=== PATIENT | female | born 1950 | race Caucasian/White ===

== ENCOUNTER → 2024-01-15 10:30 | Outpatient (BNVA) | payer OTHER, SELFPAY | PROVIDERS: PCP Family Medicine; Visit Provider Internal Medicine Rheumatology ==

== ENCOUNTER 2024-01-31 10:27 | Outpatient (AMB) | payer OTHER, SELFPAY ==
--- OUTSIDE RECORDS SUMMARY | 2024-01-31 10:31 | XMS_ITS | Data Portability ---
Author Organization [facility] (O) Address [address] [place] [address] Care Team Providers Care Water Resources Engineer Name Role Phone ANGELES DEVLIN Primary Care Provider KURT GONZALEZ General Surgeon Assessment No assessment recorded. Plan of Treatment Reminders Order Date Submit Date Provider Last Modified By Organization Details Last Modified Time Details Appointments None record ed. Lab None record ed. Referral None record ed. Procedures None record ed. Surgeries None record ed. Imaging None record ed. Medication Orders None record ed. Patient TargetsNo targets recorded. Patient Instructions Encounter Date Encounter Id Patient Instructions Last Modified By Organization Details Last Modified Time 03/27/2023 [id number] learning about acute cholecystitis [email or web address] Not available 03/27/2023 13:38:51 advance care planning: care instructions [email or web address] Not available 03/27/2023 13:38:51 Reason for Referral None Reported. Results Created Date Observation Date Name Description Value Unit Range Abnormal Flag Note LastModifiedBy Organization Detail LastModifiedTime 03/18/19 24 03/20/2023 SURGI ALLAN PATHO LOGY REPOR T surgical pathology report Patie nt Name: MATEO CURTIS JUANA Narayanan [id number] Locat ion: GSM-2 S; 0291; 1 [facility] howell MD Dire tor(s ): [address] [place] [address] Order ing Physi christian: YNES LOPEZ, DEE Will Anato george Patho logy Resul ts Acces michelle: 335- S-24- [id number] Colle cted 15:16 EST date/ time: Respo nsibl e AIXA Howell MD, HOME Mandujano Recei raúl 08:41 EST Patho logis t: A Date/ Time: SURGI ALLAN PATHO LOGY REPOR T - 13:37 EST - Auth (Veri fied) DIAGN OSIS: GALLB LADDE R: ACUTE AND CHRON IC JERMAIN CYSTI TIS WITH JERMAIN LITHI ASIS. HOME Howell (Elec troni c Signa ture) Odalys d On: 03/20 13:37 EST TAB/T AB SPECI MEN SOURC E: GALLB LADDE R CLINI ALLAN INFOR MATIO N: Diagn osis/ Clini allan Infor matio n: JERMAIN LITHI ASIS Post- Op Diagn osis: Proce dure: ROBOT IC JERMAIN CYSTE CTOMY GROSS EXAMI NATIO N: Recei raúl in forma saulo, desig nated as gall bladd er. Dimen sions : 8.3 x 3.4 by 3.0 cm previ ously opene d gallb ladde r Seros a: [place]aks- gillespie, focal ly hemor rhagi c, may h Lymph node: Absen t Cysti c duct: Obstr ucted by multi ple calcu li up to 0.4 cm Mucos a: Gillespie and velve ty, focal ly sara ened Wall thick ness: Up to 0.6 cm Stone s: Multi ple, yello w and granu lar, multi facet ed, up to 1.5 cm Repre senta tive secti ons are submi tted in one casse tte to inclu de cysti c duct brian n. CA/KM All speci mens are gross ed and prepa red at [facility] [address] [place], [place]. All block s, slide s and stain s are proce ssed, prepa red and stain ed at [facility], [address], [place], [place]. When appli cable , cytol ogy cases are pre-s creen ed by [facility] [address], [place], [place]. Routi adolfo, all small biops y speci mens are niecy hernandez at [facility], [address], [place], [place]. Note: This repor t may conta in immun ohist ochtacho istry resul ts obtai russ by the use of reage nts class ified as Jeanne te Speci fic Reage nts (ASRs ). This test was devel oped and its perfo rmanc e wilman cteri stics deter mined by [facility], Patho logy Lab. It has not been clear ed or appro raúl by the U.S. Food and Drug Admin istra tion. The FDA has Patie nt Name: MATEO CURTIS CIA 57 722 Locat ion: GSM-2 S; 0291; 1 [facility] Home s Aixa howell MD Dire tor(s ): [address] [place] [address] [phone] Order ing Physi christian: YNES LOPEZ, DEE Will Anato george Patho logy Resul ts Acces michelle: 335- S-24- [id number] Colle cted 024 15:16 EST date/ time: Respo nsibl beau Howell MD, HOME Mandujano Recei raúl 024 08:41 EST Patho logis t: A Date/ Time: GROSS EXAMI NATIO N: deter mined that such clear ance is not neces honey. All contr ols show appro priat e react ivity . This entir e repor t was dicta boris using voice recog nitio n softw are. This proce ss may intro duce typog raphi allan or gramm atica l error s which could be misse d despi te thoro ug proof readi ng. If an error in this repor t is suspe cted, pleas e notif y Patho logy. CA /CA MICRO SCOPI C EXAMI NATIO N: All slide s are exami russ micro scopi marlon . Not Available [facility] (Lab) [address], [place], [address], 03/20/2023 13:37:27 03/19/19 24 03/19/2023 CBC W/AUT O DIFF WBC 12.40 x10(3 )/mcL 4.50-1 0.50 high Not Available [facility] (Lab) [address], [place], [address], 03/19/2023 06:16:46 03/19/19 24 03/19/2023 CBC W/AUT O DIFF RBC 4.00 x10(6 )/mcL 4.20-5 .50 low Not Available [facility] (Lab) [address], [place], [address], 03/19/2023 06:16:46 03/19/19 24 03/19/2023 CBC W/AUT O DIFF HGB 12.1 g/dL 12.0-1 6.0 Not Available [facility] (Lab) [address], [place], [address], 03/19/2023 06:16:46 03/19/19 24 03/19/2023 CBC W/AUT O DIFF HCT 35.8 % 37.0-4 7.0 low Not Available [facility] (Lab) [address], [place], [address], 03/19/2023 06:16:46 03/19/19 24 03/19/2023 CBC W/AUT O DIFF MCV 89.5 fL 81.0-9 6.0 Not Available [facility] (Lab) [address], [place], [address], 03/19/2023 06:16:46 03/19/19 24 03/19/2023 CBC W/AUT O DIFF MCH 30.3 pg 27.0-3 4.0 Not Available [facility] (Lab) [address], [place], [address], 03/19/2023 06:16:46 03/19/19 24 03/19/2023 CBC W/AUT O DIFF MCHC 33.9 g/dL 32.0-3 6.0 Not Available [facility] (Lab) [address], [place], [address], 03/19/2023 06:16:46 03/19/19 24 03/19/2023 CBC W/AUT O DIFF RDW-SD 42.4 fL 35.1-4 6.3 Not Available [facility] (Lab) [address], [place], [address], 03/19/2023 06:16:46 03/19/19 24 03/19/2023 CBC W/AUT O DIFF RDW-CV 13.5 % 11.5-1 4.5 Not Available [facility] (Lab) [address], [place], [address], 03/19/2023 06:16:46 03/19/19 24 03/19/2023 CBC W/AUT O DIFF platelet count 277 x10(3 )/mcL 150-45 0 Not Available [facility] (Lab) [address], [place], [address], 03/19/2023 06:16:46 03/19/19 24 03/19/2023 CBC W/AUT O DIFF MPV 8.2 fL 9.4-12 .4 low Not Available [facility] (Lab) [address], [place], [address], 03/19/2023 06:16:46 03/19/19 24 03/19/2023 CBC W/AUT O DIFF neutrophil rel 86.3 % 40.0-7 7.0 high Not Available [facility] (Lab) [address], [place], [address], 03/19/2023 06:16:46 03/19/19 24 03/19/2023 CBC W/AUT O DIFF lymphocyte rel 7.8 % 24.0-4 4.0 low Not Available [facility] (Lab) [address], [place], [address], 03/19/2023 06:16:46 03/19/19 24 03/19/2023 CBC W/AUT O DIFF monocyte rel 5.8 % 0.0-15 .0 Not Available [facility] (Lab) [address], [place], [address], 03/19/2023 06:16:46 03/19/19 24 03/19/2023 CBC W/AUT O DIFF eosinophil rel 0.0 % 0.0-10 .0 Not Available [facility] (Lab) [address], [place], [address], 03/19/2023 06:16:46 03/19/19 24 03/19/2023 CBC W/AUT O DIFF basophil rel 0.1 % 0.0-1. 9 Not Available [facility] (Lab) [address], [place], [address], 03/19/2023 06:16:46 03/19/19 24 03/19/2023 CBC W/AUT O DIFF neutrophil abs 10.7 x10(3 )/mcL 1.6-6. 1 high Not Available [facility] (Lab) [address], [place], [address], 03/19/2023 06:16:46 03/19/19 24 03/19/2023 CBC W/AUT O DIFF lymphocyte abs 1.0 x10(3 )/mcL 1.2-3. 7 low Not Available [facility] (Lab) [address], [place], [address], 03/19/2023 06:16:46 03/19/19 24 03/19/2023 CBC W/AUT O DIFF monocyte abs 0.7 x10(3 )/mcL 0.2-0. 8 Not Available [facility] (Lab) [address], [place], [address], 03/19/2023 06:16:46 03/19/19 24 03/19/2023 CBC W/AUT O DIFF eosinophil abs 0.0 x10(3 )/mcL 0.0-0. 5 Not Available [facility] (Lab) [address], [place], [address], 03/19/2023 06:16:46 03/19/19 24 03/19/2023 CBC W/AUT O DIFF basophil abs 0.0 x10(3 )/mcL 0.0-0. 1 Not Available [facility] (Lab) [address], [place], [address], 03/19/2023 06:16:46 03/19/19 24 03/19/2023 CBC W/AUT O DIFF NRBC auto rel 0.1 /100W BC 0.0-0. 2 Not Available [facility] (Lab) [address], [place], [address], 03/19/2023 06:16:46 03/19/19 24 03/19/2023 CMP sodium lvl 136.7 mmol/ L 137.0- 145.0 low Not Available [facility] (Lab) [address], [place], [address], 03/19/2023 06:32:45 03/19/19 24 03/19/2023 CMP potassium lvl 3.9 mmol/ L 3.4-5. 0 Not Available [facility] (Lab) [address], [place], [address], 03/19/2023 06:32:45 03/19/19 24 03/19/2023 CMP chloride lvl 99.2 mmol/ L 98.0-1 07.0 Not Available [facility] (Lab) [address], [place], [address], 03/19/2023 06:32:45 03/19/19 24 03/19/2023 CMP CO2 31 mmol/ L 22-30 high Not Available [facility] (Lab) [address], [place], [address], 03/19/2023 06:32:45 03/19/19 24 03/19/2023 CMP glucose level 132.9 mg/dL 74.0-1 06.0 high Not Available [facility] (Lab) [address], [place], [address], 03/19/2023 06:32:45 03/19/19 24 03/19/2023 CMP BUN 9.7 mg/dL 7.0-17 .0 Not Available [facility] (Lab) [address], [place], [address], 03/19/2023 06:32:45 03/19/19 24 03/19/2023 CMP creatinine lvl 0.75 mg/dL 0.52-1 .04 Not Available [facility] (Lab) [address], [place], [address], 03/19/2023 06:32:45 03/19/19 24 03/19/2023 CMP agap 6.3 mmol/ L 5.0-15 .0 Not Available [facility] (Lab) [address], [place], [address], 03/19/2023 06:32:45 03/19/19 24 03/19/2023 CMP BUN/creat 13 ratio 10-20 Not Availa ble [facility] (Lab) [address], [place], [address], 03/19/2023 06:32:45 03/19/19 24 03/19/2023 CMP total protein 5.89 g/dL 6.30-8 .20 low Not Available [facility] (Lab) [address], [place], [address], 03/19/2023 06:32:45 03/19/19 24 03/19/2023 CMP albumin lvl 3.6 g/dL 3.5-5. 0 Not Available [facility] (Lab) [address], [place], [address], 03/19/2023 06:32:45 03/19/19 24 03/19/2023 CMP calcium lvl 8.6 mg/dL 8.4-10 .2 Not Available [facility] (Lab) [address], [place], [address], 03/19/2023 06:32:45 03/19/19 24 03/19/2023 CMP bili total 0.48 mg/dL 0.00-1 .00 Not Available [facility] (Lab) [address], [place], [address], 03/19/2023 06:32:45 03/19/19 24 03/19/2023 CMP alk phos 91.6 U/L 38.0-1 26.0 Not Available [facility] (Lab) [address], [place], [address], 03/19/2023 06:32:45 03/19/19 24 03/19/2023 CMP AST 46 U/L 14-36 high Not Available [facility] (Lab) [address], [place], [address], 03/19/2023 06:32:45 03/19/19 24 03/19/2023 CMP ALT 40 U/L 9-52 Not Available [facility] (Lab) [address], [place], [address], 03/19/2023 06:32:45 03/19/19 24 03/19/2023 CMP globulin 2.3 Not Availab le [facility] (Lab) [address], [place], [address], 03/19/2023 06:32:45 03/19/19 24 03/19/2023 CMP A/G ratio 2 Not Availa ble [facility] (Lab) [address], [place], [address], 03/19/2023 06:32:45 03/19/19 24 03/19/2023 CMP calcium corrctd 9 mg/dL Not Available [facility] (Lab) [address], [place], [address], 03/19/2023 06:32:45 03/19/19 24 03/19/2023 CMP eGFR CKD-epi 86 mL/mi n/1.7 3m2 >=90 low Not Available [facility] (Lab) [address], [place], [address], 03/19/2023 06:32:45 Result Notes None recorded. Procedures Surgical History Date Name Laterality Status Provider Name and Address Organization Details Recorded Time 024 Cholecystectomy completed Amanda Fraga [facility] 03/26/2023 16:02:23 023 Most Recent Mammogram completed Amanda Fraga [facility] 03/27/2023 13:09:12 Hemorrhoidectomy completed Amanda Fraga [facility] 03/27/2023 13:09:24 Section completed Amanda Fraga [facility] 03/27/2023 13:09:24 Hysterectomy completed Amanda Fraga [facility] 03/27/2023 13:09:24 Gallbladder Surgery completed Miguelito Fraga [facility] 03/27/2023 13:09:24 Other Surgeries completed Amanda Fraga [facility] 03/27/2023 13:09:24 Imaging Results None recorded. Procedure Notes None recorded. Medical Equipment None Reported. Allergies Allergen ID Allergen Name Allergen Category Reaction Reaction Severity Criticality Documentation Date Start Date Code Code System Note Provider Name and Address Organization Details Recorded Time 105974 POLLEN EXTRACTS environme nt,medica tion Not available Not available Not available 03/27/2023 63368 6 RxNorm Amanda Fraga [facility] 4 13:09:08 [id number] cigarette smoke [facility] Not available Not available Not available 03/27/2023 Amanda Fraga [facility] 4 13:09:08 Medications Name Sig Start Date Stop Date Status Note LastModified by Organization Details LastModified Time betamethaso ne valerate 0.1 % topical ointment active Not Available Not Available Not Available liothyronin e 5 mcg tablet TAKE 2 TABLETS BY MOUTH EVERY DAY active Not Available Not Available No t Available levothyroxi ne 75 mcg tablet TAKE 1/2 TABLET BY MOUTH DAILY active Not Available Not Available No t Available oxycodone-a cetaminophe n 5 mg-325 mg tablet TAKE 1 TABLET BY MOUTH 3 TIMES A DAY NEEDED FOR PAIN FOR 3 DAYS active Not Available Not Available No t Available docusate sodium 100 mg capsule TAKE 1 CAPSULE BY MOUTH TWICE A DAY ,X7 DAYS NEEDED FOR CONSTIPAT ION active Not Available Not Available No t Available hydroxyzine HCl 25 mg tablet TAKE 1 TABLET BY MOUTH TWICE DAILY AND 1 AT BEDTIME NEEDED active Not Available Not Available No t Available clobetasol 0.05 % topical ointment active Not Available Not Available Not Available methylpheni date ER 36 mg tablet,exte nded release 24 hr TAKE 2 TABLETS BY MOUTH ONCE DAILY active Not Available Not Available No t Available amoxicillin 875 mg-potassiu m clavulanate 125 mg tablet TAKE 1 TABLET BY MOUTH EVERY 12 HOURS FOR 5 DAYS 03/27 completed Not Available Not Available Not Available bupropion HCl XL 300 mg 24 hr tablet, extended release TAKE 1 TABLET BY MOUTH EVERY DAY ALONG WITH 150MG TABLET active Not Available Not Available No t Available Vitals Date Recorded Body weight Body mass index (BMI) Body height Respiratory rate Oxygen saturation Oxygen saturation in Arterial blood by Pulse oximetry Heart rate Systolic blood pressure Diastolic blood pressure Provider Name and Address Organization Details Last Updated DateTime 4 49400.7 9 g 22.8 kg/m2 162.56 cm 14 /min 98 % 98 % 82 /min 126 mm[Hg] 75 mm[Hg] Amanda Fraga [facility] 13:12:16 Social History Question Answer Notes LastModified by Organizat ion Details LastModified Time Tobacco Smoking Status Former Smoker Amanda Fraga [facility] 03/27/2023 13:09:20 Do You Have An Advance Directive? Yes [email or web address] Information not available 03/27/2023 What Is Your Level Of Alcohol Consumption? Moderate [email or web address] Information not available 03/27/2023 Are You Blind Or Do You Have Difficulty Seeing? No [email or web address] Information not available 03/27/2023 Is Blood Transfusion Acceptable In An Emergency? Yes [email or web address] Information not available 03/27/2023 What Is Your Level Of Caffeine Consumption? Moderate [email or web address] Information not available 03/27/2023 Are You Currently Employed? No [email or web address] Information not available 03/27/2023 Are You Deaf Or Do You Have Serious Difficulty Hearing? No [email or web address] Information not available 03/27/2023 What Type Of Diet Are You Following? REGULAR Information not available 03/27/2023 When Did You Quit Smoking? 16+yearssince lastcigarette [email or web address] Information not available 03/27/2023 Which Of Your Hands Is Dominant? Right [email or web address] Information not available 03/27/2023 If Pulse Oximetry Was Done: Is The Patient's Sp02 Less Than 93% On Room Air? No [email or web address] Information not available 03/27/2023 What Was The Date Of Your Most Recent Tobacco Screening? 03/27/2023 [email or web address] Information not available 03/27/2023 Do You Have Any Pets? No [email or web address] Information not available 03/27/2023 What Is Your Relationship Status? [email or web address] Information not available 03/27/2023 Do You Feel Stressed (tense, Restless, Nervous, Or Anxious, Or Unable To Sleep At Night)? [id number] [email or web address] Information not available 03/27/2023 Do You Use Any Illicit Or Recreational Drugs? No [email or web address] Information not available 03/27/2023 How Many Years Have You Smoked Tobacco? 6 [email or web address] Information not available 03/27/2023 Do You Or Have You Ever Used Any Other Forms Of Tobacco Or Nicotine? No [email or web address] Information not available 03/27/2023 How Many Days In The Past Year Have You Consumed 4 Or More Drinks? 0 [email or web address] Information no t available 03/27/2023 Sex: Unknown Functional Status Question Answer Note LastModified by Organization D etails LastModified Time Are you able to care for yourself? Yes [email or web address] Information not available 03/27/2023 What is your exercise level? Moderate [email or web address] Information not available 03/27/2023 Mental Status None recorded. Family History Nothing Reported. Medical History Condition Response Thyroid Disease/Disorder Y Asthma Y Gynecological History Statement/Question Response N Total # of Pregnancies 3 Y Menorrhagia (heavy periods)? N N Most Recent Mammogram 04/14/2022 Age at Menarche 17 Current Control Method Other N 2 N Total # of Miscarriages 0 N N Abnormal Pap N Total # of Births 3 Abnormal MMG N Obstetrics History GPAL:G 0 P 0 0 0 0 Past Encounters Encounter ID Performer Location Encounter Start Date Encounter Closed Date Diagnosis/Indication Diagnosis SNOMED-CT Code Diagnosis ICD10 Code [id number] Kurt Gonzalez MD [facility] [address] [place] [address] 03/27/2023 12:58:42 03/27/2023 13:35:55 Body mass index 20-24 - normal 468196194 Z68.22 Advance care planning 71 1662177 Z71.89 Acute cholecystitis 6527 5009 K81.0 Health Concerns Section Related Observation LastModified by Organization Detai ls LastModified Time None Recorded Concern Status LastModified by Organization Details LastModified Time None Recorded Advance Directives Directive Y: Payers Encounter Date Sequence Insurance Name Policy Number Policy Clements Covered Member ID Clements Member ID Guarantor Name 03/27/2023 1 [place] (MED[place]ARE[place] Yamilet Shepherd [id number] Yamilet Shepherd 03/27/2023 2 [facility] INDEMNITY PLAN [facility] [id number] Yamilet Triana [id number] Yamilet Shepherd Notes Date Note Type Note Provider Name and Address Organization Details Recorded Time 03/27/2023 text/html Mrs Shepherd is seen in postop today following robotic assisted cholecystectomy for severe cholecystitis Kurt Gonzalez MD [address], [place], [address], [facility] 03/27/2023 13:39:17 OBGyn Episode No OBEpisode recorded.
--- NOTE | 2024-01-31 10:49 | MHC.OFFVIS ---
Vital Signs 01/31/24 10:51 Height 5 ft 4 in Weight 122 lb 9.232 oz BMI 21.0 BP 138/64 Blood Pressure Location Lt brachial Position Sitting Pulse 75 Pulse Source Pulse Oximeter Pulse Oximetry (%) 99 Oxygen Delivery Method Room Air Intake Visit Reasons: Athritis/CM at 1100 arrival 10:30 Intake Note: Patient presents for arthritis today, she has not been seen since before Covid, pain in hip and right leg, and fingers in both of her hands. Allergies z pack Adverse Reaction (Mild, Uncoded 01/31/24 10:54) Difficulty Breathing HPI HPI Athritis/CM at 1100 arrival 10:30: Details: After covid-19 rebound in July she had incerase joint pain all over. The increased pain subsided in the coming months. She continues to have pelvic fatigue with prolonged standing with pain radiating down right leg with her right foot getting numb. She went to chiropractor. She failed Tylenol 500 mg with ibuprofen 400 mg every 4 hours. At this time pelvic and leg pain does not occur every day. She is also experiencing pain in her fingers. Prior to COVID-19, she did not have any pain. She has had chronic deformities in her fingers. Hard to write and open things. Morning stiffness 30-45 minutes. She has been experiencing numbness in her hands. Nocturnal paresthesias are present. She had an abdominal rash in the summer and was concerned for a bug bite. The rash was diffuse on her abdomen and then self resolved. Denies fevers, recent infection, oral ulcers, genital ulcers, pleurisy, dyspnea, urinary symptoms, abdominal pain, Raynaud's phenomenon She had history of cholecystectomy in March. Aunt has lupus. There is family history of arthritis She smoked from the age of [age]. She has a glass of wine daily. She is retired at travels often. [facility] Medical History (Updated 01/31/24 @ 15:28 by Car Wright MD) ADD (attention deficit disorder) Arthritis Rotator cuff injury Surgical History (Updated 01/31/24 @ 11:07 by Kirti Mondragon CMA) Hx of cholecystectomy H/O: hysterectomy Family History (Updated 01/31/24 @ 11:09 by Kirti Mondragon CMA) Father Cancer Mother Emphysema lung Osteoporosis Social History (Updated 01/31/24 @ 11:10 by Kirti Mondragon [facility]) Alcohol intake: current Alcohol intake frequency: 0-2 drinks per day Alcohol type: wine Patient Tobacco Use Status: Former Tobacco user Years Smoked: 5 Review of Systems Const All systems reviewed & are unremarkable except as noted in HPI and below Physical Exam Vital Signs: Last Vital Signs Pulse 75 01/31/24 10:51 BP 138/64 01/31/24 10:51 Pulse Ox 99 01/31/24 10:51 Oxygen Delivery Method Room Air 01/31/24 10:51 BMI result Body Mass Index 21.0 Const Other: General: Comfortable CVS: RRR Respiratory: clear to auscultation bilaterally. Good respiratory effort Skin: No lesions seen MSK: Tender PIP bilateral with synovitis present right 2nd PIP. Tender DIP in hands. Heberden nodes present. 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 Good range of motion of her shoulders. She does not have tenderness of her hips. Good external rotation of her hips. Good knee flexion. No MTP tenderness. Straight leg raising test right side positive. No tenderness of spinous process. Good cervical range of motion and good lumbar flexion. No SI joint tenderness. Positive Phalen's test Right side. Negative Tinel's test. Assessment & Plan Assessment & Plan (1) Osteoarthritis, hand: Comment: Clinical diagnosis. We discussed diagnosis and management. Code(s): M19.049 - Primary osteoarthritis, unspecified hand Category: Medical Qualifiers: Osteoarthritis type: primary Plan: X-rays bilateral hands ordered OT ordered After lab results are back, I will send prescription for NSAID diclofenac 50 mg twice a day Return to clinic in 3 months (2) Carpal tunnel syndrome, bilateral: Comment: Clinical diagnosis. Right worse than left. Code(s): G56.03 - Carpal tunnel syndrome, bilateral upper limbs Category: Medical Plan: Nerve conduction study ordered Bilateral cock-up wrist braces prescribed to wear at night Return to clinic in 3 months (3) Hip pain: Comment: She is experiencing bilateral hip pain with prolonged standing and radicular symptoms involving her right leg. I am concerned that she has spinal nerve impingement. She may have degenerative joint disease contributing to hip pain. We discussed conservative management. She had imaging ordered by PCP at [facility] but I do not have reports of x-rays. Code(s): M25.559 - Pain in unspecified hip Category: Medical Qualifiers: Laterality: bilateral Qualified Code(s): M25.551 - Pain in right hip; M25.552 - Pain in left hip Plan: Requesting x-rays hips, L-spine, SI joint report [facility] PT ordered I plan to start NSAID after lab results are back She seeing spinal specialist for evaluation Return to clinic in 3 months (4) Right leg weakness: Code(s): R29.898 - Other symptoms and signs involving the musculoskeletal system Category: Medical Plan: See above Orders: Orders XR hand LT min 3V Today M19.049 - Primary osteoarthritis, unspecified hand XR hand RT min 3V Today M19.049 - Primary osteoarthritis, unspecified hand Alanine Aminotransferase Today Z79.60 - longterm (current) use of unspecified immunomodulators and immunosuppressants Aspartate Amino Transferase Today Z79.60 - terminal system operator (current) use of unspecified immunomodulators and immunosuppressants C Reactive Protein Today M19.049 - Primary osteoarthritis, unspecified hand OT Evaluation and Treatment Today M19.049 - Primary osteoarthritis, unspecified hand Complete Blood Count Auto Diff Today Z79.60 - longterm (current) use of unspecified immunomodulators and immunosuppressants Creatinine Today Z79.60 - longterm (current) use of unspecified immunomodulators and immunosuppressants Erythrocyte Sedimentation Rate Today M19.049 - Primary osteoarthritis, unspecified hand NE electromyogram (EMG) Today G56.03 - Carpal tunnel syndrome, bilateral upper limbs NE nerve conduction velocity Today G56.03 - Carpal tunnel syndrome, bilateral upper limbs Referrals Physical Medicine and Rehabilitation Referral M25.559 - Pain in unspecified hip, R29.898 - Other symptoms and signs involving the musculoskeletal system Medications: New arm brace (Wrist Brace) As directed. Bilateral cockup wrist brace. Dx: carpal tunnel syndorme 2 ea 0RF Coding Level of Care Code New Pt Level 4 (34765) Diagnoses Osteoarthritis, hand M19.049 Osteoarthritis type: primary Carpal tunnel syndrome, bilateral G56.03 Bilateral hip pain M25.551; M25.552 Laterality: bilateral Right leg weakness R29.898
[2024-01-31 10:51] VITALS: BP 138/64; PULSE 75; O2SAT 99; BMI 21.0
== END 2024-01-31 12:15 | disposition home or self-care (01) ==
LOC: HO.RHES 10:27
PROVIDERS: PCP Family Medicine; Visit Provider Internal Medicine Rheumatology
DX: M19.049 Primary osteoarthritis, unspecified hand (principal); G56.03 Carpal tunnel syndrome, bilateral upper limbs; M25.551 Pain in right hip; M25.552 Pain in left hip; R29.898 Other symptoms and signs involving the musculoskeletal system
CPT/HCPCS: 99204

== ENCOUNTER 2024-01-31 10:27 | Outpatient (REF) | payer OTHER, MEDICARE, SELFPAY ==
--- NOTE | ~2024-01-31 | XR_ITS ---
EXAMINATION: XR HAND 3 OR MORE VIEWS LEFT, XR HAND 3 OR MORE VIEWS RIGHT HISTORY: M19.049 - Primary osteoarthritis, unspecified hand COMPARISON: There are no prior studies available for comparison. FINDINGS: Six views of the bilateral hands are submitted. Osseous mineralization is normal. There is no fracture or dislocation. On the right, there is moderate to severe osteoarthritis of the 1st carpometacarpal joint and moderate osteoarthritis of the DIP joints of the index and middle fingers. On the left, there is severe osteoarthritis of the 1st carpometacarpal joint and moderate osteoarthritis of the DIP joint of the index finger and the PIP joint of the middle finger. The soft tissues are unremarkable. XR/XR hand LT min 3V IMPRESSION: Osteoarthritis of the bilateral hands as described. Electronically signed by: Benja Munguia MD 02/22/2024 07:04 AM NATASHA OLIVIER
--- NOTE | ~2024-01-31 | XR_ITS ---
EXAMINATION: XR HAND 3 OR MORE VIEWS LEFT, XR HAND 3 OR MORE VIEWS RIGHT HISTORY: M19.049 - Primary osteoarthritis, unspecified hand COMPARISON: There are no prior studies available for comparison. FINDINGS: Six views of the bilateral hands are submitted. Osseous mineralization is normal. There is no fracture or dislocation. On the right, there is moderate to severe osteoarthritis of the 1st carpometacarpal joint and moderate osteoarthritis of the DIP joints of the index and middle fingers. On the left, there is severe osteoarthritis of the 1st carpometacarpal joint and moderate osteoarthritis of the DIP joint of the index finger and the PIP joint of the middle finger. The soft tissues are unremarkable. XR/XR hand RT min 3V IMPRESSION: Osteoarthritis of the bilateral hands as described. Electronically signed by: Benja Munguia MD 02/22/2024 07:04 AM NATAS[facility] OLIVIER
[2024-01-31 13:55] LABS: MANUAL DIFF FLAG NO
[2024-01-31 14:05] LABS: Basophils Percent Auto 0.5 % (0-2); Eosinophils Absolute Auto 0.2 X10*3/uL (0.0-0.4); Eosinophils Percent Auto 3.1 % (0-4); Hematocrit 37.8 % (37.0-47.0); Hemoglobin 12.8 g/dl (12.0-16.0); Imm Gran Abs Auto 0.01 X10*3/uL (0.00-0.03); Imm Gran Pct Auto 0.2 % (0.0-0.4); Lymphocytes Absolute Auto 2.1 X10*3/uL (1.2-4.9); Lymphocytes Percent Auto 34.3 % (20-40); Mean Corpuscular HGB Conc 33.9 g/dl (31.0-35.0); Mean Corpuscular Hemoglobin 30.4 pg (27.0-33.0); Mean Corpuscular Volume 89.8 fL (80.0-98.0); Mean Platelet Volume 9.2 fL (9.4-12.3); Monocytes Absolute Auto 0.4 X10*3/uL (0.1-1.2); Monocytes Percent Auto 6.6 % (2-11); Neutrophils Absolute Auto 3.4 x10*3/uL (2.0-8.3); Neutrophils Percent Auto 55.3 % (45-73); Platelet Count 255 X10*3/uL (160-400); Red Blood Count 4.21 X10*6/uL (4.20-5.50); Red Cell Distribution Width 12.4 % (11.0-16.0); White Blood Count 6.1 X10*3/uL (4.8-10.8)
[2024-01-31 14:34] LABS: Alanine Aminotransferase 33 U/L (0-31); Aspartate Amino Transferase 30 U/L (5-31); C Reactive Protein < 0.10 mg/dL (< or = 0.50); Estimated Glomerular Filt Rate 56
[2024-01-31 14:43] LABS: Erythrocyte Sedimentation Rate 4 MM/HR (0-20)
== END 2024-01-31 10:28 | disposition home or self-care (01) ==
LOC: HO.XRAY 10:27
PROVIDERS: PCP Family Medicine; Visit Provider Internal Medicine Rheumatology
DX: M19.041 Primary osteoarthritis, right hand (principal); M19.042 Primary osteoarthritis, left hand; Z79.60 Long term (current) use of unspecified immunomodulators and immunosuppressants
CPT/HCPCS: 36415; 73130; 82565; 84450; 84460; 85025; 85652; 86140

== ENCOUNTER → 2024-01-31 13:56 | Outpatient (BNV) | payer OTHER, MEDICARE, SELFPAY | PROVIDERS: PCP Family Medicine; Visit Provider Radiology Diagnostic Radiology | DX: M19.042 Primary osteoarthritis, left hand (principal); M19.041 Primary osteoarthritis, right hand | CPT/HCPCS: 73130 ==

== ENCOUNTER 2024-02-26 06:16 | Outpatient (REF) | payer OTHER, MEDICARE, SELFPAY ==
--- NOTE | 2024-02-26 05:54 | EMG_ITS ---
Bilateral median and ulnar motor and sensory studies were performed. Bilateral radial sensory and median and lateral antecubital brachial sensory studies were performed, and paraspinal muscles were tested with a needle. IMPRESSION: 1. [id number] bilateral median neuropathy across carpal tunnel. 2. Mild bilateral ulnar neuropathy across cubital tunnel. 3. Underlying mild axonal sensory motor peripheral neuropathy. 4. Bilateral chronic mid cervical radiculopathy. MD SUSHMA Erickson/JABARI / [id number]
== END 2024-02-26 06:17 | disposition home or self-care (01) ==
LOC: HO.NEURO 06:16
PROVIDERS: PCP Family Medicine; Visit Provider Internal Medicine Rheumatology
DX: G56.03 Carpal tunnel syndrome, bilateral upper limbs (principal)
CPT/HCPCS: 95886; 95913

== ENCOUNTER 2024-05-14 13:07 | Outpatient (REF) | payer MEDICARE, OTHER, SELFPAY ==
[2024-05-14 18:32] LABS: Estimated Average Glucose 97 mg/dL; Total Hemoglobin (HGBA1C) 3383.5188 umol/L
[2024-05-14 18:40] LABS: Alanine Aminotransferase 27 U/L (0-31); Albumin Level 4.4 g/dL (3.5-5.0); Alkaline Phosphatase 86 U/L (39-117); Aspartate Amino Transferase 30 U/L (5-31); Bilirubin Direct 0.1 mg/dL (0.0-0.5); Bilirubin Total 0.3 mg/dL (0.0-1.0); Total Protein 7.1 g/dL (6.5-8.0)
[2024-05-14 18:57] LABS: TSH reflex Free T4 1.89 uIU/mL (0.32-4.0)
[2024-05-14 18:59] LABS: Vitamin B12 741 pg/mL (200-900)
== END 2024-05-14 13:08 | disposition home or self-care (01) ==
LOC: HO.HKASLDS 13:07
PROVIDERS: Visit Provider Internal Medicine Rheumatology
DX: G62.9 Polyneuropathy, unspecified (principal); R74.01 Elevation of levels of liver transaminase levels; Z13.1 Encounter for screening for diabetes mellitus
CPT/HCPCS: 36415; 80076; 82607; 83036; 84443; 99212

== ENCOUNTER 2024-05-14 13:07 | Outpatient (AMB) | payer MEDICARE, OTHER, SELFPAY ==
--- NOTE | 2024-05-14 13:12 | A.OFFVIS_ITS ---
Vital Signs 05/14/24 13:14 Height 5 ft 4 in Weight 131 lb 13.383 oz BMI 22.6 BP 170/80 H Blood Pressure Location Lt brachial Position Sitting Pulse 74 Pulse Source Pulse Oximeter Pulse Oximetry (%) 96 Oxygen Delivery Method Room Air Intake Visit Reasons: discuss EMG results Intake Note: Patient presents for arthritis today Allergies z pack Adverse Reaction (Mild, Uncoded 01/31/24 10:54) Difficulty Breathing HPI HPI discuss EMG results: Details: Pain in arms including paresthesia has resolved. She purchased wrist braces but has not had a need to wear them. She saw a neonatal specialist who told her that her pelvis is not aligned and gave her exercises to do, which relieved back pain and neuropathy symptoms. She is experiencing back pain due to a red eye flight overnight. Her PCP retired. She has seen a provider in the PCP's practice. Blood pressure is high. She is asymptomatic. She feels relaxed from her vacation. [facility] Medical History (Updated 05/14/24 @ 22:35 by Car Wright MD) ADD (attention deficit disorder) Arthritis Rotator cuff injury Surgical History (Updated 01/31/24 @ 11:07 by Kirti Mondragon CMA) Hx of cholecystectomy H/O: hysterectomy Family History (Updated 01/31/24 @ 11:09 by Kirti Mondragon CMA) Father Cancer Mother Emphysema lung Osteoporosis Social History (Updated 01/31/24 @ 11:10 by Kirti Mondragon CMA) Alcohol intake: current Alcohol intake frequency: 0-2 drinks per day Alcohol type: wine Patient Tobacco Use Status: Former Tobacco user Years Smoked: 5 Review of Systems Const All systems reviewed & are unremarkable except as noted in HPI and below Physical Exam Vital Signs: Last Vital Signs Pulse 74 05/14/24 13:14 BP 170/80 H 05/14/24 13:14 Pulse Ox 96 05/14/24 13:14 Oxygen Delivery Method Room Air 05/14/24 13:14 BMI result Body Mass Index 22.6 Const Other: General: Comfortable CVS: RRR Respiratory: clear to auscultation bilaterally. Good respiratory effort Skin: No lesions seen MSK: No tender joints. Heberden nodes present. 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 Good range of motion of her shoulders. Results Reviewed Results Reviewed: Ordering Physician: Car Wright MD Date of Service: 02/26/24 Procedure(s): NE nerve conduction velocity Accession Number(s): [id number] cc: Car Wright MD~ Bilateral median and ulnar motor and sensory studies were performed. Bilateral radial sensory and median and lateral antecubital brachial sensory studies were performed, and paraspinal muscles were tested with a needle. IMPRESSION: 1. [id number] bilateral median neuropathy across carpal tunnel. 2. Mild bilateral ulnar neuropathy across cubital tunnel. 3. Underlying mild axonal sensory motor peripheral neuropathy. 4. Bilateral chronic mid cervical radiculopathy. Assessment & Plan Assessment & Plan (1) Carpal tunnel syndrome, bilateral: Comment: Clinical diagnosis last visit 01/31/2024 with symptoms worse in the right hand compared to the left. EMG of upper extremities 02/26/2024 confirmed bilateral carpal tunnel syndrome but patient is asymptomatic at this time. Code(s): G56.03 - Carpal tunnel syndrome, bilateral upper limbs Category: Medical Plan: She has bilateral cock-up wrist braces at home to use if she becomes symptomatic Return to clinic in 1 year or sooner if needed (2) Peripheral neuropathy: Comment: On recent EMG of upper extremities she has mild axonal and motor peripheral neuropathy. Code(s): G62.9 - Polyneuropathy, unspecified Category: Medical Qualifiers: Peripheral neuropathy type: polyneuropathy, unspecified Qualified Code(s): G62.9 - Polyneuropathy, unspecified Plan: Workup ordered with hemoglobin A1c, TSH and vitamin B12 PCP follow-up (3) Hypertension: Comment: Asymptomatic. Code(s): I10 - Essential (primary) hypertension Category: Medical Qualifiers: Hypertension type: primary hypertension Qualified Code(s): I10 - Essent ial (primary) hypertension Plan: I have asked her to monitor her blood pressure. Her neighbor is a nurse who will take her blood pressure. If her blood pressure consistently remains elevated this week, contact PCP for further management. We discussed the risk of stroke with elevated blood pressure. Discontinue diclofenac as NSAIDs can contribute to hypertension (4) Transaminitis: Comment: ALT mildly elevated at 33. AST is normal. Code(s): R74.01 - Elevation of levels of liver transaminase levels Category: Medical Plan: Liver function panel ordered Discontinue diclofenac 50 mg daily (5) Bilateral cervical radiculopathy: Comment: Per EMG report. At this time she is asymptomatic. Code(s): M54.12 - Radiculopathy, cervical region Category: Medical Plan: Monitor clinically Orders: Orders TSH reflex Free T4 Today G62.9 - Polyneuropathy, unspecified Hemoglobin A1c Today G62.9 - Polyneuropathy, unspecified Vitamin B12 Today G62.9 - Polyneuropathy, unspecified Coding Level of Care Code Est Pt Level 4 (39896) Complex EM visit Add On G2211 Diagnoses Carpal tunnel syndrome, bilateral G56.03 Peripheral polyneuropathy G62.9 Peripheral neuropathy type: polyneuropathy, unspecified Primary hypertension I10 Hypertension type: primary hypertension Transaminitis R74.01 Bilateral cervical radiculopathy M54.12
[2024-05-14 13:14] VITALS: BP 170/80; PULSE 74; O2SAT 96; BMI 22.6
--- OUTSIDE RECORDS SUMMARY | 2024-05-14 15:43 | XMS_ITS | Data Portability ---
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 [address] [phone] Order ing Physi christian: YNES LOPEZ, DEE Will Anato george Patho logy Resul ts Acces michelle: 335- S-24- [phone] 9 Colle cted 15:16 EST date/ time: [...] opene d gallb ladde r Seros a: [place]- gillespie, focal ly hemor rhagi c, may [...] are gross ed and prepa red at [facility] [address], [place]. All block s, slide s and stain s are proce ssed, prepa red and stain ed at [facility], [address], [place], [place]. When appli cable , cytol ogy cases are pre-s creen ed by [facility] [address], [place], [place]. Routi adolfo, all small biops y speci mens are niecy hernandez at [facility], [address], [place], [place]. Note: This repor t may conta in immun ohist ochtacho istry resul ts obtai russ by the use of reage nts class ified as Jeanne te Speci fic Reage nts (ASRs ). This test was devel oped and its perfo rmanc e wilman cteri stics deter mined by [facility], Patho logy Lab. It has not been clear ed or appro raúl by the U.S. Food and Drug Admin istra tion. The FDA has Patie nt Name: MATEO CURTIS CIA 57 722 Locat ion: GSM-2 S; 0291; 1 [facility] Aixa howell MD Dire tor(s ): [address] [place] [address] Order ing Physi christian: YNES LOPEZ, DEE Will Anato george Patho logy Resul ts Acces michelle: 335- S-24- [id number] 9 Colle cted 024 15:16 EST date/ [...] russ micro scopi marlon . Not Available [facility] (Lab) [address], [place], [address], 03/20/2023 13:37:27 03/19/19 24 03/19/2023 CBC W/AUT O DIFF WBC 12.40 x10(3 )/mcL 4.50-1 0.50 high Not Available [facility] (Lab) [address], [place], [address], 03/19/2023 06:16:46 03/19/19 24 03/19/2023 CBC W/AUT O DIFF RBC 4.00 x10(6 )/mcL 4.20-5 .50 low Not Available [facility] (Lab) [address], [place], [address], 03/19/2023 06:16:46 03/19/19 24 03/19/2023 CBC W/AUT O DIFF HGB 12.1 g/dL 12.0-1 6.0 Not Available [facility] (Lab) [address], [place], [address], 03/19/2023 06:16:46 03/19/19 24 03/19/2023 CBC W/AUT O DIFF HCT 35.8 % 37.0-4 7.0 low Not Available [facility] (Lab) [address], [place], [address], 03/19/2023 06:16:46 03/19/19 24 03/19/2023 CBC W/AUT O DIFF MCV 89.5 fL 81.0-9 6.0 Not Available [facility] (Lab) [address], [place], [address], 03/19/2023 06:16:46 03/19/19 24 03/19/2023 CBC W/AUT O DIFF MCH 30.3 pg 27.0-3 4.0 Not Available [facility] (Lab) [address], [place], [address], 03/19/2023 06:16:46 03/19/19 24 03/19/2023 CBC W/AUT O DIFF MCHC 33.9 g/dL 32.0-3 6.0 Not Available [facility] (Lab) [address], [place], [address], 03/19/2023 06:16:46 03/19/19 24 03/19/2023 CBC W/AUT O DIFF RDW-SD 42.4 fL 35.1-4 6.3 Not Available [facility] (Lab) [address], [place], [address], 03/19/2023 06:16:46 03/19/19 24 03/19/2023 CBC W/AUT O DIFF RDW-CV 13.5 % 11.5-1 4.5 Not Available [facility] (Lab) [address], [place], [address], 03/19/2023 06:16:46 03/19/19 24 03/19/2023 CBC W/AUT O DIFF platelet count 277 x10(3 )/mcL 150-45 0 Not Available [facility] (Lab) [address], [place], [address], 03/19/2023 06:16:46 03/19/19 24 03/19/2023 CBC W/AUT O DIFF MPV 8.2 fL 9.4-12 .4 low Not Available [facility] (Lab) [address], [place], [address], 03/19/2023 06:16:46 03/19/19 24 03/19/2023 CBC W/AUT O DIFF neutrophil rel 86.3 % 40.0-7 7.0 high Not Available [facility] (Lab) [address], [place], [address], 03/19/2023 06:16:46 03/19/19 24 03/19/2023 CBC W/AUT O DIFF lymphocyte rel 7.8 % 24.0-4 4.0 low Not Available [facility] (Lab) [address], [place], [address], 03/19/2023 06:16:46 03/19/19 24 03/19/2023 CBC W/AUT O DIFF monocyte rel 5.8 % 0.0-15 .0 Not Available [facility] (Lab) [address], [place], [address], 03/19/2023 06:16:46 03/19/19 24 03/19/2023 CBC W/AUT O DIFF eosinophil rel 0.0 % 0.0-10 .0 Not Available [facility] (Lab) [address], [place], [address], 03/19/2023 06:16:46 03/19/19 24 03/19/2023 CBC W/AUT O DIFF basophil rel 0.1 % 0.0-1. 9 Not Available [facility] (Lab) [address], [place], [address], 03/19/2023 06:16:46 03/19/19 24 03/19/2023 CBC W/AUT O DIFF neutrophil abs 10.7 x10(3 )/mcL 1.6-6. 1 high Not Available [facility] (Lab) [address], [place], [address], 03/19/2023 06:16:46 03/19/19 24 03/19/2023 CBC W/AUT O DIFF lymphocyte abs 1.0 x10(3 )/mcL 1.2-3. 7 low Not Available [facility] (Lab) [address], [place], [address], 03/19/2023 06:16:46 03/19/19 24 03/19/2023 CBC W/AUT O DIFF monocyte abs 0.7 x10(3 )/mcL 0.2-0. 8 Not Available [facility] (Lab) [address], [place], [address], 03/19/2023 06:16:46 03/19/19 24 03/19/2023 CBC W/AUT O DIFF eosinophil abs 0.0 x10(3 )/mcL 0.0-0. 5 Not Available [facility] (Lab) [address], [place], [address], 03/19/2023 06:16:46 03/19/19 24 03/19/2023 CBC W/AUT O DIFF basophil abs 0.0 x10(3 )/mcL 0.0-0. 1 Not Available [facility] (Lab) [address], [place], [address], 03/19/2023 06:16:46 03/19/19 24 03/19/2023 CBC W/AUT O DIFF NRBC auto rel 0.1 /100W BC 0.0-0. 2 Not Available [facility] (Lab) [address], [place], [address], 03/19/2023 06:16:46 03/19/19 24 03/19/2023 CMP sodium lvl 136.7 mmol/ L 137.0- 145.0 low Not Available [facility] (Lab) [address], [place], [address], 03/19/2023 06:32:45 03/19/19 24 03/19/2023 CMP potassium lvl 3.9 mmol/ L 3.4-5. 0 Not Available [facility] (Lab) [address], [place], [address], 03/19/2023 06:32:45 03/19/19 24 03/19/2023 CMP chloride lvl 99.2 mmol/ L 98.0-1 07.0 Not Available [facility] (Lab) [address], [place], [address], 03/19/2023 06:32:45 03/19/19 24 03/19/2023 CMP CO2 31 mmol/ L 22-30 high Not Available [facility] (Lab) [address], [place], [address], 03/19/2023 06:32:45 03/19/19 24 03/19/2023 CMP glucose level 132.9 mg/dL 74.0-1 06.0 high Not Available [facility] (Lab) [address], [place], [address], 03/19/2023 06:32:45 03/19/19 24 03/19/2023 CMP BUN 9.7 mg/dL 7.0-17 .0 Not Available [facility] (Lab) [address], [place], [address], 03/19/2023 06:32:45 03/19/19 24 03/19/2023 CMP creatinine lvl 0.75 mg/dL 0.52-1 .04 Not Available [facility] (Lab) [address], [place], [address], 03/19/2023 06:32:45 03/19/19 24 03/19/2023 CMP agap 6.3 mmol/ L 5.0-15 .0 Not Available [facility] (Lab) [address], [place], [address], 03/19/2023 06:32:45 03/19/19 24 03/19/2023 CMP BUN/creat 13 ratio 10-20 Not Availa ble [facility] (Lab) [address], [place], [address], 03/19/2023 06:32:45 03/19/19 24 03/19/2023 CMP total protein 5.89 g/dL 6.30-8 .20 low Not Available [facility] (Lab) [address], [place], [address], 03/19/2023 06:32:45 03/19/19 24 03/19/2023 CMP albumin lvl 3.6 g/dL 3.5-5. 0 Not Available [facility] (Lab) [address], [place], [address], 03/19/2023 06:32:45 03/19/19 24 03/19/2023 CMP calcium lvl 8.6 mg/dL 8.4-10 .2 Not Available [facility] (Lab) [address], [place], [address], 03/19/2023 06:32:45 03/19/19 24 03/19/2023 CMP bili total 0.48 mg/dL 0.00-1 .00 Not Available [facility] (Lab) [address], [place], [address], 03/19/2023 06:32:45 03/19/19 24 03/19/2023 CMP alk phos 91.6 U/L 38.0-1 26.0 Not Available [facility] (Lab) [address], [place], [address], 03/19/2023 06:32:45 03/19/19 24 03/19/2023 CMP AST 46 U/L 14-36 high Not Available [facility] (Lab) [address], [place], [address], 03/19/2023 06:32:45 03/19/19 24 03/19/2023 CMP ALT 40 U/L 9-52 Not Available [facility] (Lab) [address], [place], [address], 03/19/2023 06:32:45 03/19/19 24 03/19/2023 CMP globulin 2.3 Not Availab le [facility] (Lab) [address], [place], [address], 03/19/2023 06:32:45 03/19/19 24 03/19/2023 CMP A/G ratio 2 Not Availa ble [facility] (Lab) [address], [place], [address], 03/19/2023 06:32:45 03/19/19 24 03/19/2023 CMP calcium corrctd 9 mg/dL Not Available [facility] (Lab) [address], [place], [address], 03/19/2023 06:32:45 03/19/19 24 03/19/2023 CMP eGFR CKD-epi 86 mL/mi n/1.7 3m2 >=90 low Not Available [facility] (Lab) [address], [place], [address], 03/19/2023 06:32:45 Result Notes None recorded. Procedures Surgical History Date Name Laterality Status Provider Name and Address Organization Details Recorded Time 024 Cholecystectomy completed Amanda Fraga [facility] 03/26/2023 16:02:23 023 Most Recent Mammogram completed Amanda Fraga [facility] 03/27/2023 13:09:12 Hemorrhoidectomy completed Amanda Fraga [facility] 03/27/2023 13:09:24 Section completed Amanda Fraga [facility] 03/27/2023 13:09:24 Hysterectomy completed Amanda Fraga [facility] 03/27/2023 13:09:24 Gallbladder Surgery completed Miguelito Fraga [facility] 03/27/2023 13:09:24 Other Surgeries completed Amanda Fraga [facility] 03/27/2023 13:09:24 Imaging Results None recorded. Procedure Notes None recorded. Medical Equipment None Reported. Allergies Allergen ID Allergen Name Allergen Category Reaction Reaction Severity Criticality Documentation Date Start Date Code Code System Note Provider Name and Address Organization Details Recorded Time 021205 PO[employer] environme nt,medica tion Not available Not available Not available 03/27/2023 93868 6 RxNorm Amanda Fraga [facility] 4 13:09:08 [id number] cigarette smoke [facility] Not available Not available Not available 03/27/2023 22480 UNK Amanda Fraga [facility] 4 13:09:08 Medications Name Sig Start Date [...] Address Organization Details Last Updated DateTime 4 50141.7 9 g 22.8 kg/m2 162.56 cm 14 /min 98 % 98 % 82 /min 126 mm[Hg] 75 mm[Hg] Amanda Fraga [facility] 13:12:16 Social History Question Answer Notes LastModified by Organizat ion Details LastModified Time Tobacco Smoking Status Former Smoker Amanda Fraga [facility] 03/27/2023 13:09:20 Do You Have An Advance Directive? Yes [email or web address] Information not available 03/27/2023 What Is Your Level Of Alcohol Consumption? Moderate [email or web address] Information not available 03/27/2023 Are You Blind Or Do You Have Difficulty Seeing? No [email or web address] Information not available 03/27/2023 Is Blood Transfusion Acceptable In An Emergency? Yes [email or web address] Information not available 03/27/2023 What Is Your Level Of Caffeine Consumption? Moderate [email or web address] Information not available 03/27/2023 Are You Currently Employed? No [email or web address] Information not available 03/27/2023 Are You Deaf Or Do You Have Serious Difficulty Hearing? No [email or web address] Information not available 03/27/2023 What Type Of Diet Are You Following? REGULAR [email or web address] Information not available 03/27/2023 When Did You Quit Smoking? 16+yearssince lastcigarette [email or web address] Information not available 03/27/2023 Which Of Your Hands Is Dominant? Right [email or web address] Information not available 03/27/2023 If Pulse Oximetry Was Done: Is The Patient's Sp02 Less Than 93% On Room Air? No [email or web address] Information not available 03/27/2023 What Was The Date Of Your Most Recent Tobacco Screening? 03/27/2023 [email or web address] Information not available 03/27/2023 Do You Have Any Pets? No [email or web address] Information not available 03/27/2023 What Is Your Relationship Status? [email or web address] Information not available 03/27/2023 Do You Feel Stressed (tense, Restless, Nervous, Or Anxious, Or Unable To Sleep At Night)? [id number] Information not available 03/27/2023 Do You Use Any Illicit Or Recreational Drugs? No [email or web address] Information not available 03/27/2023 How Many Years Have You Smoked Tobacco? 6 Information not available 03/27/2023 Do You Or Have You Ever Used Any Other Forms Of Tobacco Or Nicotine? No [email or web address] Information not available 03/27/2023 How Many Days In The Past Year Have You Consumed 4 Or More Drinks? 0 [email or web address] Information no t available 03/27/2023 Sex: Unknown Functional Status Question Answer Note LastModified by Organization D etails LastModified Time Are you able to care for yourself? Yes [email or web address] Information not available 03/27/2023 What is your exercise level? Moderate [email or web address] Information not available 03/27/2023 Mental Status None [...] Diagnosis/Indication Diagnosis SNOMED-CT Code Diagnosis ICD10 Code Diagnosis Note [id number] Kurt Gonzalez MD [facility] [address] [place] [address] 03/27/2023 12:58:42 03/27/2023 13:35:55 Body mass index 20-24 - normal [id number] Z68.22 Advance care planning 71 [id number] Z71.89 Acute cholecystitis 6527 5009 K81.0 Ms. Triana is doing very well in postop today. She does have some lower abdominal pain which may be secondary to lysis of adhesions from extensive pelvic surgery we had to perform. She states her right upper quadrant pain is improved. She is tolerating diet. Initially she had constipati on but that is improved. I will see her back in 2 weeks before she goes back to [facility] to ensure everything is going well Health Concerns Section Related Observation LastModified by Organization Detai ls LastModified Time None Recorded Concern Status LastModified by Organization Details LastModified Time None Recorded Advance Directives Directive Y: Payers Encounter Date Sequence Insurance Name Policy Number Policy Clements Covered Member ID Clements Member ID Guarantor Name 03/27/2023 1 [place] Yamilet Shepherd [id number] Yamilet Shepherd 03/27/2023 2 [facility] [id number] Yamilet Narayanan Kamilah [id number] Yamilet Shepherd Notes Date Note Type Note Provider Name and Address Organization Details Recorded Time 03/27/2023 text/html Mrs Shepherd is seen in postop today following robotic assisted cholecystectomy for severe cholecystitis Kurt Gonzalez MD [address] [place], [address], [facility] 03/27/2023 13:39:17 OBGyn Episode No OBEpisode recorded.
== END 2024-05-14 13:51 | disposition home or self-care (01) ==
LOC: HO.RHES 13:08
PROVIDERS: PCP Registered Nurse; Visit Provider Internal Medicine Rheumatology
DX: G56.03 Carpal tunnel syndrome, bilateral upper limbs (principal); G62.89 Other specified polyneuropathies; I10 Essential (primary) hypertension; R74.01 Elevation of levels of liver transaminase levels; M54.12 Radiculopathy, cervical region
CPT/HCPCS: 99214; G2211